=== PATIENT | female | born 1975 | race Two or more races ===

== ENCOUNTER 2020-05-30 22:50 | Inpatient (IN) | payer MEDICAID ==
[~2020-05-30] VITALS: Ht 154.9 cm; Wt 63.5 kg
[2020-05-31 00:37] LABS: BASOPHILS % 0.5 % (0.0-2.0); EOSINOPHILS % 0.6 % (0.0-5.0); HEMATOCRIT. 39.2 % (36.0-48.0); HEMOGLOBIN. 13.5 g/dL (12.0-16.0); LYMPHOCYTES % 29.3 % (20.0-50.0); MEAN CORPUSCULAR HEMOGLOBIN 31.7 pg (28.0-32.0); MEAN CORPUSCULAR VOLUME 92.1 fL (81.0-99.0); MEAN PLATELET VOLUME 7.9 fl (7.4-10.4); MONOCYTES % 6.3 % (2.0-8.0); NEUTROPHILS % 63.3 % (40.0-76.0); PLATELET 323 x1000/uL (130-400); RED BLOOD CELL COUNT 4.26 mill/uL (4.2-5.4); RED CELL DISTRIBUTION WIDTH 12.5 % (11.6-14.6)
[2020-05-31 00:46] LABS: CHLORIDE 109 mEq/L (98-107); HCG SCREEN NEGATIVE
[2020-05-31] MEDS ORDERED: ASPIRIN 81MG TABLET PO ONE (03:00)
[2020-05-31] MEDS ORDERED: MAGNESIUM/ALUMINUM HYDROXIDE/SIMETHICONE 30ML UDC PO PRN (17:30)
[2020-05-31] MEDS ORDERED: HYDROCODONE/ACETAMINOPHEN 5/325MG TABLET PO PRN (17:30)
[2020-05-31] MEDS ORDERED: CLONIDINE 0.1MG TABLET PO PRN (17:30)
[2020-05-31] MEDS ORDERED: ACETAMINOPHEN 325MG TABLET PO PRN (17:30)
[2020-05-31] MEDS ORDERED: IPRATROPIUM/ALBUTEROL 0.5-3(2.5)MG/3ML NEB NEB PRN (17:30)
[2020-05-31] MEDS ORDERED: DOCUSATE SODIUM 100MG CAPSULE PO PRN (17:30)
[2020-05-31] MEDS: ENOXAPARIN 40MG/0.4ML SYR SUBCUT SCH (21:33)
[2020-06-01 04:00] VITALS: BP 103/59
[2020-06-01] MEDS ORDERED: IBUP-2030 PO (04:01)
[2020-06-01 04:48] LABS: *BARBITURATES SCREEN URINE NEGATIVE (NEGATIVE); *COCAINE SCREEN URINE NEGATIVE (NEGATIVE)
[2020-06-01 04:49] LABS: *AMPHETAMINES SCREEN URINE NEGATIVE (NEGATIVE); *BENZODIAZEPINES SCREEN URINE NEGATIVE (NEGATIVE); CANNABINOID URINE SCREEN NEGATIVE (NEGATIVE); METHADONE URINE SCREEN NEGATIVE (NEGATIVE); OPIATES URINE SCREEN NEGATIVE (NEGATIVE); PHENCYCLIDINE URINE SCREEN NEGATIVE (NEGATIVE)
[2020-06-01 06:29] LABS: CHLORIDE 111 mEq/L (98-107)
[2020-06-01 06:35] LABS: PHOSPHORUS 3.9 mg/dL (2.5-4.9)
[2020-06-01 06:37] LABS: HDL CHOLESTEROL 67 mg/dL (40-59); LDL CHOLESTEROL 93 mg/dL (5-100)
[2020-06-01 06:42] LABS: BASOPHILS % 0.6 % (0.0-2.0); EOSINOPHILS % 1.1 % (0.0-5.0); HEMATOCRIT. 38.5 % (36.0-48.0); HEMOGLOBIN. 13.4 g/dL (12.0-16.0); LYMPHOCYTES % 40.9 % (20.0-50.0); MEAN CORPUSCULAR VOLUME 91.7 fL (81.0-99.0); MEAN PLATELET VOLUME 7.9 fl (7.4-10.4); NEUTROPHILS % 50.4 % (40.0-76.0); PLATELET 309 x1000/uL (130-400); RED BLOOD CELL COUNT 4.19 mill/uL (4.2-5.4); RED CELL DISTRIBUTION WIDTH 12.4 % (11.6-14.6)
[2020-06-01 08:00] VITALS: BP 98/59
[2020-06-01 12:00] VITALS: BP 129/74
[2020-06-01 16:00] VITALS: BP 102/52
[2020-06-01 16:20] LABS: CREATINE KINASE MB FRACTION 1.8 ng/mL (0.5-3.6)
[2020-06-01] MEDS: ENOXAPARIN 40MG/0.4ML SYR SUBCUT SCH (17:55)
[2020-06-01 20:00] VITALS: BP 102/61
[2020-06-01] MEDS: METOPROLOL TARTRATE 25MG TABLET PO SCH (21:00)
[2020-06-02] VITALS: BP 106/63
[2020-06-02 04:00] VITALS: BP 94/49
[2020-06-02 05:36] LABS: CHLORIDE 109 mEq/L (98-107)
[2020-06-02 06:22] LABS: BASOPHILS % 0.6 % (0.0-2.0); EOSINOPHILS % 1.2 % (0.0-5.0); HEMOGLOBIN. 13.6 g/dL (12.0-16.0); LYMPHOCYTES % 36.6 % (20.0-50.0); MEAN CORPUSCULAR HEMOGLOBIN 31.8 pg (28.0-32.0); MEAN CORPUSCULAR VOLUME 91.4 fL (81.0-99.0); MEAN PLATELET VOLUME 7.9 fl (7.4-10.4); MONOCYTES % 6.5 % (2.0-8.0); NEUTROPHILS % 55.1 % (40.0-76.0); PLATELET 316 x1000/uL (130-400); RED BLOOD CELL COUNT 4.26 mill/uL (4.2-5.4); RED CELL DISTRIBUTION WIDTH 12.5 % (11.6-14.6)
[2020-06-02 08:00] VITALS: BP 93/51
[2020-06-02] MEDS: METOPROLOL TARTRATE 25MG TABLET PO SCH (09:00)
[2020-06-02] MEDS ORDERED: DIGO250T79 MT (12:11)
[2020-06-02 13:29] VITALS: BP 93/51
[2020-06-02] MEDS ORDERED: DIGOXIN 250MCG TABLET PO SCH (18:00)
== END 2020-06-02 14:45 | disposition home or self-care (01) | DRG 201 ==
LOC: ER 22:50 → EDBD 22:50 → 6WST 05-31 03:47 → ENRESERV 05-31 23:09
PROVIDERS: ADMIT Internal Medicine; ATTEND Internal Medicine
DX: I47.1 Supraventricular tachycardia (principal); I24.8 Other forms of acute ischemic heart disease; E87.6 Hypokalemia; E66.9 Obesity, unspecified; E78.5 Hyperlipidemia, unspecified; R74.0 Nonspecific elevation of levels of transaminase and lactic acid dehydrogenase [LDH]; Z68.26 Body mass index [BMI] 26.0-26.9, adult
CPT/HCPCS: 36415; 71045; 80048; 80053; 80061; 80305; 82550; 82553; 83735; 83880; 84100; 84443; 84484; 84703; 85025; 93005; 93306; 93970; 97161; 99285; J1650